=== PATIENT | male | born 1955 | race Caucasian/White ===

== ENCOUNTER → 2018-06-07 12:00 | Day surgery (SDC) | payer MEDICAID ==
[2018-06-07 14:40] LABS: Body Fluid Source Pleural Fluid
[2018-06-07 15:53] LABS: Body Fluid Mono 32 %; Body Fluid Other Cells 26
--- NOTE | 2018-06-07 23:12 | PRO ---
THORACENTESIS REPORT: DATE OF PROCEDURE: 06/07/18 PREPROCEDURAL DIAGNOSIS: Moderate right pleural effusion. PROCEDURE PERFORMED: Ultrasound-guided thoracentesis on the right side. ANESTHESIA: Local anesthesia with 1% lidocaine. DESCRIPTION OF PROCEDURE: Informed consent was obtained from the patient prior to the procedure after all the risks and benefits were thoroughly explained. The patient was sitting up and leaning forward during the procedure. Strict aseptic precautions and all barrier techniques were utilized. Portable ultrasound was utilized at the bedside to localize moderate amount of right pleural effusion. Necessary pictures were taken and were scanned into the medical record. Area was covered with sterile drape. Area was disinfected with chlorhexidine. A [employer] 8-Beninese thoracentesis catheter was utilized for the procedure. Local anesthesia was achieved with 6 cc of 1% lidocaine intradermally, subcutaneously down into the pleural space, taking precautions. A #11 scalpel blade was used to make a stab incision. [employer]usion 8-Beninese thoracentesis catheter was then inserted under manual suction, taking precautions. Catheter was left in place and needle was removed. 1200 mL of light yellow fluid was removed under manual suction. The patient tolerated the procedure well. Post procedure chest x-ray was obtained and was reviewed by me. No pneumothorax was noted. The patient was subsequently discharged back to his assisted. [id number]/[facility] #: [id number] JAMES
[2018-06-09 13:23] LABS: Lactate Dehydrogenase, BF 93 U/L
== END | disposition home or self-care (01) ==
LOC: OR 12:00
PROVIDERS: ATTEND Internal Medicine
DX: J90 Pleural effusion, not elsewhere classified (principal); C18.9 Malignant neoplasm of colon, unspecified; D64.9 Anemia, unspecified; I10 Essential (primary) hypertension; E78.5 Hyperlipidemia, unspecified; F17.210 Nicotine dependence, cigarettes, uncomplicated; Z86.73 Personal history of transient ischemic attack (TIA), and cerebral infarction without residual deficits
CPT/HCPCS: 32554; 36415; 71045; 76604; 82945; 83615; 83986; 84157; 87040; 87205; 88112; 88305; 89051